=== PATIENT | female | born 1990 | race Caucasian/White ===

== ENCOUNTER 2024-01-01 18:04 | Inpatient (IN) ==
[2024-01-01] MEDS ORDERED: Lidocaine 1% VIAL 10 MG/ML 30 ML VIAL INJ PRN (18:30)
[2024-01-01] MEDS ORDERED: Prochlorperazine 5 mg/ml 2 ml VIAL (10 mg) IV PRN (18:30)
[2024-01-01] MEDS ORDERED: Ondansetron 4 mg VIAL 2 MG/ML 2 ml VIAL IV PRN (18:41)
[2024-01-01 18:54] LABS: Urine Appearance Clear; Urine Bilirubin Negative (Negative); Urine Blood Negative (Negative); Urine Color Light-Yellow; Urine Glucose Negative (Negative); Urine Ketones Negative (Negative); Urine Nitrite Negative (Negative); Urine Protein Negative (Negative); Urine Specific Gravity 1.013 (1.002-1.030); Urine Urobilinogen Negative (Negative); Urine pH 6.5 (5.0-8.0)
[2024-01-01 19:03] LABS: Urine Bacteria Absent /HPF (Absent); Urine Red Blood Cell Trace(0-2/hpf) /HPF (0-Trace); Urine Squamous Epithelial Cell Present /HPF (Absent); Urine White Blood Cell 2+(11-20/hpf) /HPF (0-Trace)
[2024-01-01 19:13] LABS: Urine Benzodiazepine Screen None Detected (None Detect); Urine Cannabinoids Screen None Detected (None Detect); Urine Opiates Screen None Detected (None Detect)
[2024-01-01] MEDS: Dinoprostone 10 MG VAG.SUPP VAGINAL ONE (20:41)
[2024-01-02] MEDS: miSOPROStol 100 mcg TAB VAGINAL ONE (09:40)
[2024-01-02] MEDS: miSOPROStol 100 mcg TAB PO ONE ×3 (13:35→21:47)
[2024-01-02] MEDS ORDERED: Morphine 4 MG/ML VIAL (1 ml) IV ONE (21:45)
[2024-01-02] MEDS: Buffered Lidocaine 1% SYRIN 1 ml INTRADERM ONE (22:12)
[2024-01-02 22:20] LABS: ABS Eosinophils 0.1 10^3/uL (0.0-0.5); ABS Lymphocytes 2.3 10^3/uL (1.0-4.8); ABS Monocytes 0.9 10^3/uL (0.0-0.9); ABS Neutrophils 6.6 10^3/uL (1.5-7.6); Eosinophil % 0.7 %; Hematocrit 35.9 % (35-45); Hemoglobin 12.1 g/dL (11.5-14.3); Lymphocyte % 23.6 %; Mean Corpuscular Hemoglobin 30.3 pg (27-33); Mean Corpuscular Hgb Conc 33.8 g/dL (31-36); Mean Corpuscular Volume 89.6 fL (80-97); Mean Platelet Volume 9.4 fL (7.5-11.2); Platelet Count 238 10^3/uL (150-450); Red Blood Count 4.01 10^6/uL (3.63-4.92); White Blood Count 9.8 10^3/uL (3.8-11.8)
[2024-01-02] MEDS: Prochlorperazine 5 mg/ml 2 ml VIAL (10 mg) IV ONE (22:23)
[2024-01-03] MEDS: miSOPROStol 100 mcg TAB PO ONE (04:30)
[2024-01-03] MEDS: Lactated Ringers 1000 ml BAG 1,000 ML IV SCH (20:17)
[2024-01-03] MEDS: Oxytocin in LR 20,000 MILLI.UNIT/1,000 ML BAG IV SCH (20:25)
[2024-01-04] MEDS: Lactated Ringers 1000 ml BAG 1,000 ML IV ONE ×2 (00:40→20:55)
[2024-01-04] MEDS: OBEPIDURAL (200 ML) 200 ML EPIDURAL SCH (01:45)
[2024-01-04] MEDS ORDERED: Phenylephrine 40 mcg/mL 10mL (400mcg) SYRINGE IV PUSH PRN ×2 (02:13)
[2024-01-04 03:10] LABS: Urine Appearance Clear; Urine Bilirubin Negative (Negative); Urine Blood Negative (Negative); Urine Color Light-Yellow; Urine Glucose Negative (Negative); Urine Ketones Negative (Negative); Urine Nitrite Negative (Negative); Urine Protein Negative (Negative); Urine Specific Gravity 1.012 (1.002-1.030); Urine Urobilinogen Negative (Negative); Urine pH 6.5 (5.0-8.0)
[2024-01-04] MEDS: Lidocaine 2% JELLY 6 ML Topical TOPICAL ONE (06:20)
[2024-01-04] MEDS: Lidocaine 1.5% EPI 1:200,000 30 ML SDV ONE (06:23)
[2024-01-04] MEDS: OBEPIDURAL (200 ML) 200 ML EPIDURAL ONE (06:24)
[2024-01-04] MEDS: Lactated Ringers 1000 ml BAG 1,000 ML IV SCH (09:10)
[2024-01-04] MEDS ORDERED: Ondansetron 4 mg VIAL 2 MG/ML 2 ml VIAL IV PRN ×2 (09:33→15:23)
[2024-01-04] MEDS ORDERED: KETAMINE HCL 10 MG/ML 20 ml VIAL (200 MG) ONE (13:43)
[2024-01-04] MEDS: Sodium Citrate/Citric Acid LIQ 15 ML UDC PO PRN (13:45)
[2024-01-04] MEDS: ceFOXitin 2 GM IVPREMIX 2 GM/50 ML BAG IVPB ONE (13:46)
[2024-01-04] MEDS ORDERED: Ondansetron 4 mg VIAL 2 MG/ML 2 ml VIAL ONE (14:16)
[2024-01-04] MEDS ORDERED: Lidocaine 2% PF 10 ML AMP (OR) ONE (14:16)
[2024-01-04] MEDS ORDERED: Oxytocin 10 UNITS/ML 1 ML VIAL ONE (14:16)
[2024-01-04] MEDS ORDERED: Acetaminophen IV 1 GM/100ML 1,000 MG/100 ML BAG IV ONE (14:17)
[2024-01-04] MEDS ORDERED: fentaNYL 100 mcg/2 ml 50 MCG/ML VIAL ONE (14:24)
[2024-01-04] MEDS ORDERED: Morphine PF AMP (0.5MG/ML) 5 MG/10 ML AMP ONE (14:26)
[2024-01-04] MEDS ORDERED: Propofol 10 MG/ML 20 ML BTL ONE (14:31)
[2024-01-04] MEDS ORDERED: Naloxone 0.4 mg VIAL 0.4 mg/ml 1 ml VIAL IV PRN (15:22)
[2024-01-04] MEDS ORDERED: HYDROmorphone 1 MG/1 ML SYRINGE IV PRN (15:22)
[2024-01-04] MEDS ORDERED: Acetaminophen IV 1 GM/100ML 1,000 MG/100 ML BAG IV PRN (15:23)
[2024-01-04] MEDS ORDERED: Naloxone 0.4 mg VIAL 0.4 mg/ml 1 ml VIAL IV PUSH PRN (15:23)
[2024-01-04] MEDS ORDERED: Metoclopramide 5 MG/ML VIAL (10 mg) IV PRN (15:23)
[2024-01-04] MEDS ORDERED: Dibucaine 1% OINT 28.35 GM TUBE PR PRN (15:33)
[2024-01-04] MEDS ORDERED: Glycerin ADULT 2.4 gm SUPP PR PRN (15:33)
[2024-01-04] MEDS ORDERED: Witch Hazel PAD JAR TOPICAL PRN (15:33)
[2024-01-04] MEDS ORDERED: Lactated Ringers 1000 ml BAG 1,000 ML IV SCH (16:00)
[2024-01-04] MEDS: Oxytocin in LR 20,000 MILLI.UNIT/1,000 ML BAG IV SCH (20:07)
[2024-01-04] MEDS: Phenylephrine 40 mcg/mL 10mL (400mcg) SYRINGE ONE (20:54)
[2024-01-05 00:33] LABS: ABS Lymphocytes 1.1 10^3/uL (1.0-4.8); ABS Monocytes 0.8 10^3/uL (0.0-0.9); ABS Neutrophils 12.5 10^3/uL (1.5-7.6); ABS Nucleated RBC 0.01 10^3/ul; Eosinophil % 0.2 %; Hematocrit 30.1 % (35-45); Hemoglobin 10.1 g/dL (11.5-14.3); Lymphocyte % 7.5 %; Mean Corpuscular Hemoglobin 30.3 pg (27-33); Mean Corpuscular Hgb Conc 33.5 g/dL (31-36); Mean Corpuscular Volume 90.5 fL (80-97); Mean Platelet Volume 8.9 fL (7.5-11.2); Nucleated Red Blood Cells % 0.1 %/100WBC (0.0-0.8); Platelet Count 200 10^3/uL (150-450); Red Blood Count 3.32 10^6/uL (3.63-4.92); Red Cell Distribution Width 14.9 % (12-17); White Blood Count 14.4 10^3/uL (3.8-11.8)
[2024-01-05 00:54] LABS: Albumin 2.6 g/dL (3.2-5.2); Albumin/Globulin Ratio 1.4 (1-3); Calcium 7.9 mg/dL (8.6-10.3); Creatinine, Serum 0.59 mg/dL (0.51-0.95); Globulin 1.9 g/dL (2-4); Potassium 3.8 mmol/L (3.5-5.0); Total Bilirubin 1.3 mg/dL (0.2-1.0); Total Protein 4.5 g/dL (6.4-8.9); eGFR CKD-EPI 121.2 (>60)
[2024-01-05] MEDS: Iohexol 350 (CONTRAST) 500 ML MDV IV ONE (02:58)
[2024-01-05 07:40] LABS: ABS Eosinophils 0.1 10^3/uL (0.0-0.5); ABS Lymphocytes 1.2 10^3/uL (1.0-4.8); ABS Neutrophils 13.2 10^3/uL (1.5-7.6); Eosinophil % 0.6 %; Hematocrit 29.6 % (35-45); Lymphocyte % 7.7 %; Mean Corpuscular Hemoglobin 30.2 pg (27-33); Mean Corpuscular Hgb Conc 33.6 g/dL (31-36); Mean Corpuscular Volume 89.9 fL (80-97); Mean Platelet Volume 8.7 fL (7.5-11.2); Platelet Count 188 10^3/uL (150-450); Red Blood Count 3.29 10^6/uL (3.63-4.92); Red Cell Distribution Width 14.6 % (12-17); White Blood Count 15.6 10^3/uL (3.8-11.8)
[2024-01-07 20:11] VITALS: BP 111/67
== END 2024-01-07 21:17 | disposition home or self-care (01) | DRG 540 ==
LOC: MCHOBOUT 18:04 → MCHOB 18:12
PROVIDERS: ADMIT Advanced Practice Midwife; ATTEND Obstetrics & Gynecology